=== PATIENT | male | born 1950 | race Caucasian/White ===

== ENCOUNTER 2020-09-10 02:59 | Inpatient (IN) | payer MEDICARE, OTHER ==
[2020-09-10] MEDS ORDERED: Ondansetron PF 4 MG/2 ML Vial ONE ×2 (03:15→15:48)
[2020-09-10] MEDS ORDERED: Morphine 2 MG/ML VIAL SLOW IVP PRN (04:07)
--- NOTE | 2020-09-10 04:17 | PDOC.HHP ---
Hospitalist HPI - History of Present Illness Right flank pain History of Present Illness: This is a 70-year-old male patient with a history of prediabetes and CKD who presents as a transfer from [facility] on account of right nephrolithiasis. Patient notes that he was generally well and had worked for most of the day however started having left flank pain which is very severe and radiates into his groin. He had associated nausea and vomiting. This led him to see the ED at [facility] where he was noted on CT CT stone protocol to have right nephrolithiasis of 12 mm. Pain relief was managed with morphine. Also received Levaquin and ceftriaxone and Solu-Medrol 125 mg IV. He was then transferred here so he could see a urologist. At time of my evaluation patient was almost pain-free. He denied any ongoing nausea or vomiting. Denied any dysuria frequency. Also denied any chest pain or shortness of breath. His labs as [facility] shows a mild leukocytosis of 13.7, creatinine of 2.61 from 2.48 on 07/27/2020. Urinalysis showed proteinuria however no indication of UTI. Hospitalist ROS - Review of Systems Constitutional: denies: fever, chills, sweats Respiratory: denies: cough, shortness of breath, hemoptysis Gastrointestinal: reports: nausea, vomiting, abdominal pain Genitourinary: reports: hematuria. denies: dysuria, frequency, incontinence Neurological: denies: weakness, numbness, incoordination, change in speech All other systems reviewed; all pertinent +/- noted in HPI/Subj - Medication Medications: Medications: Currently refer to ambulatory list. Allergies: Penicillin Hospitalist History - Past Medical History Other Medical History: Prediabetes - Past Surgical History Past Surgical History: reports: no pertinent history - Family History Family History: reports: diabetes mellitus - Social History Smoking Status: Current every day smoker Alcohol: reports: Occassional Drugs: reports: none Living Situation: Alone - Exam General Appearance: awake alert General - other findings: No acute distress. Eye: PERRL, anicteric sclera Heart: RRR, no murmur, no gallops, no rubs Respiratory: CTAB, no wheezes, no rales, no ronchi Gastrointestinal: soft, non-distended, normal bowel sounds, no palpable masses, tender to palpation (Mild right flank tenderness.) Extremities: no cyanosis, no clubbing, no edema Neurological: cranial nerve grossly intact, no weakness, no focal deficits Psychiatric: normal affect, normal behavior, A&O x 3 Hospitalist H&P A/P - Plan Plan: This is a 70-year-old male patient with a history of prediabetes and CKD presenting with right flank pain secondary to nephrolithiasis [facility] Nephrolithiasis IV fluid rehydrate Pain relief as needed Nephrology consult in a.m. -Right hydronephrosis as above CKD Creatinine above 2 Give IV fluids Consult nephrology if worsens. -Obesity VT prophylaxisLovenox CODE STATUSfull code
[2020-09-10] MEDS: Sodium Chloride 0.9% 1,000 ML IV SCH ×3 (06:13→17:44)
[2020-09-10] MEDS ORDERED: Dextrose 5% in Water 1,000 ML IV PRN (07:22)
[2020-09-10] MEDS ORDERED: HumaLOG 300 UNITS/3 ML VIAL SC PRN ×2 (07:22)
[2020-09-10] MEDS ORDERED: Dextrose 50% Abboject 50 ML SYRINGE SLOW IVP PRN (07:22)
[2020-09-10 08:11] VITALS: BMI 41.5
[2020-09-10] MEDS: Enoxaparin Sodium 40 MG/0.4 ML SYRINGE SC SCH (10:43)
[2020-09-10] MEDS ORDERED: Ondansetron ODT 4 MG TAB PO PRN (10:58)
[2020-09-10] MEDS ORDERED: Ondansetron PF 4 MG/2 ML Vial IVP PRN (10:58)
[2020-09-10] MEDS ORDERED: Non-Formulary Item 1 EACH (Albuterol Sulfate [Ventolin Hfa] 8 GM Hfa.Aer.Ad) INH PRN (12:43)
[2020-09-10] MEDS ORDERED: Albuterol 200 PUFF (6.7GM INHALER) INH PRN (13:12)
[2020-09-10 13:48] LABS: SARS-CoV-2 NAA Rapid Test Not Detected (NotDetected)
[2020-09-10] MEDS ORDERED: Fentanyl 100 MCG/2 ML VIAL ONE (15:32)
[2020-09-10] MEDS ORDERED: Midazolam HCl 2 mg/2 ml Vial ONE (15:32)
[2020-09-10] MEDS ORDERED: Iothalamate Meglumine 60% 50 ML VIAL FS ONE (15:37)
[2020-09-10] MEDS ORDERED: Lidocaine 1% PF 5 ML VIAL ONE (15:48)
[2020-09-10] MEDS ORDERED: PROPOFOL 200 MG/20 ML VIAL ONE (15:48)
[2020-09-10] MEDS ORDERED: ePHEDrine 50 MG/ML VIAL ONE (15:48)
[2020-09-10] MEDS ORDERED: Dexamethasone 20 MG/5 ML VIAL ONE (15:48)
[2020-09-10] MEDS ORDERED: B & O ONE (16:22)
[2020-09-10] MEDS ORDERED: Promethazine HCl 25 MG/ML VIAL SLOW IVP PRN (16:26)
[2020-09-10] MEDS ORDERED: Promethazine HCl 25 MG/ML VIAL IM PRN (16:26)
[2020-09-10] MEDS ORDERED: Ondansetron HCl/PF 4 MG/2 ML Vial IVP PRN (16:26)
--- NOTE | 2020-09-10 16:57 | RAD ---
EXAM: Retrograde IVP HISTORY: Kidney stones COMPARISON: None FINDINGS/IMPRESSION: Limited intraoperative fluoroscopic views of the retrograde IVP were submitted f or interpretation. There is no evidence of hydronephrosis. Calcifications are seen projecting over the right kidney. A wire and a pigtail catheter are eventually placed adjacent to the calcifications in the right renal collecting system.
--- NOTE | 2020-09-10 19:16 | CON ---
DATE OF CONSULTATION: 09/10/2020 REASON FOR CONSULTATION: Right renal stone. HISTORY OF PRESENT ILLNESS: Mr. Velasquez is a 70-year-old gentleman who lives in [place] and was seen in the [place] [facility]. He presented with acute onset of severe flank pain. He was evaluated in the emergency room and noted to have a large right ureteral stone. The stone was at the UPJ and over 1 cm in size. He was admitted for pain control. Urologic consultation was requested. The patient denies any voiding symptoms. Denies any prior history of stone disease. Denies any fever. PAST MEDICAL HISTORY: Chronic renal insufficiency. PAST SURGICAL HISTORY: Right knee surgery. MEDICATIONS: Please see chart. ALLERGIES: PENICILLIN. SOCIAL HISTORY: He is a nonsmoker. Denies alcohol use. He is , lives in [place]. REVIEW OF SYSTEMS: RESPIRATORY: No shortness of breath. CARDIOVASCULAR: No chest pain or palpitations. GASTROINTESTINAL: Denies chronic constipation or diarrhea. GENITOURINARY: Please see history of present illness. PHYSICAL EXAMINATION: GENERAL: He is awake, alert. He is in no distress at this time. VITAL SIGNS: Temperature 98.4, blood pressure 129/93, pulse 73, respiratory rate 20. HEENT: Normocephalic, atraumatic. NECK: Supple without masses. CHEST: Clear to auscultation. CARDIOVASCULAR: No murmurs. ABDOMEN: Soft, nontender. No palpable masses. Liver and spleen are not palpable. No peritoneal signs. EXTREMITIES: No edema. DIAGNOSTIC STUDIES: CT scan demonstrates large right upper ureteral stone. LABORATORY DATA: Chemistry; creatinine 2.61, potassium 3.9. Urinalysis demonstrates 2+ mucus, rare bacteria, moderate blood. IMPRESSION: Mr. Velasquez is a 70-year-old gentleman with a very large stone unlikely to pass with right-sided flank pain. There is no evidence of sepsis or infection at this time. Because of the size of the stone, it is highly unlikely he will pass this stone and is likely to suffer from persistent pain without narcotic pain medications. We recommend a right ureteral stent placement for recovery of the kidney function and then he will need to return for a definitive management of the right-sided stone. I have recommended a cystoscopy, right ureteral stent placement. The procedure, potential limitations, alternatives, and complications have been discussed with him. He expressed understanding and does wish to proceed. Plan cystoscopy, right ureteral stent placement. Job ID: [id number]
[2020-09-10 20:26] LABS: SARS-CoV-2 PCR by NAA Not Detected (NotDetected)
[2020-09-10] MEDS: Mometasone 100 MCG/Formoterol 5 MCG 120 PUFF INHALER INH SCH (21:03)
--- NOTE | 2020-09-10 23:11 | OP ---
DATE OF PROCEDURE: 09/10/2020 PREOPERATIVE DIAGNOSIS: Right ureteropelvic junction stone. POSTOPERATIVE DIAGNOSIS: Right ureteropelvic junction stone. PROCEDURE: Cystoscopy, right ureteral stent placement. ANESTHESIA: General. INDICATIONS: Mr. Velasquez is a 70-year-old gentleman, who developed acute onset of right-sided flank pain. He was seen in [facility] and diagnosed with a 1.2 cm right UPJ stone. He was transferred to [facility]. There was no evidence of infection, but his creatinine was elevated. Baseline creatinine not known. He is brought to the operating room for right ureteral stent placement. DETAILS OF PROCEDURE: The patient given general anesthesia and IV antibiotics. He is sterilely prepped and draped in lithotomy position. Cystoscope was passed in the bladder. Right ureteral orifice was intubated with a floppy tip guidewire, which was passed cephalad under fluoroscopic control. A 6 x 26 double-J stent was then passed over the guidewire and coiled in the right renal pelvis and in the bladder as determined fluoroscopically and cystoscopically. The cystoscope was used to drain the bladder. The cystoscope was removed. The patient tolerated the procedure well, was transported from the operating room to recovery room in stable condition. COMPLICATIONS: None. ESTIMATED BLOOD LOSS: Less than 5 mL. PLAN: Stone easily visible on [facility]. He is a treatment candidate for ESWL or ureteroscopy with laser lithotripsy. This will be arranged as an outpatient in approximately two weeks. Job ID: [id number]
[2020-09-11] MEDS: Sodium Chloride 0.9% 1,000 ML IV SCH ×2 (05:02→11:51)
[2020-09-11 06:42] LABS: #Lymphocytes 0.8 thou/uL (1.20-3.40); #Monocytes 0.8 thou/uL (0.11-0.59); #Neutrophils 15.7 thou/uL (1.40-6.50); %Eosinophils 0.1 % (0.0-10.0); %Lymphocytes 4.5 % (21.0-51.0); %Monocytes 4.4 % (0.0-10.0); Hemoglobin 12.6 g/dL (14.0-18.0); Mean Corpuscular HGB CONC 32.2 g/dL (32.0-36.0); Mean Corpuscular Hemoglobin 31.3 pg (27.0-31.0); Mean Corpuscular Volume 97.1 fL (78.0-98.0); Mean Platelet Volume 7.8 fL (7.4-10.4); Platelet Count 237 thou/uL (130-400); RBC Distribution Width 12.5 % (11.5-14.5); Red Blood Cell (RBC) Count 4.04 mill/uL (4.70-6.10); White Blood Cell (WBC) Count 17.2 thou/uL (4.8-10.8)
[2020-09-11] MEDS: Mometasone 100 MCG/Formoterol 5 MCG 120 PUFF INHALER INH SCH ×2 (06:50→19:30)
[2020-09-11 07:02] LABS: Anion Gap 14 mmol/L (10-20); BUN (Urea Nitrogen) 43 mg/dL (8.4-25.7); Calc. Creatinine Clearance 41 mL/min (70-130); Calcium 8.4 mg/dL (7.8-10.44); Carbon Dioxide 23 mmol/L (23-31); Chloride 104 mmol/L (98-107); Glucose 142 mg/dL (80-115); Potassium 4.4 mmol/L (3.5-5.1); Sodium 137 mmol/L (136-145)
[2020-09-11] MEDS: Amlodipine 5 MG TAB PO SCH (07:58)
[2020-09-11] MEDS: Enoxaparin Sodium 40 MG/0.4 ML SYRINGE SC SCH (07:59)
[2020-09-11] MEDS ORDERED: FLU VACC QS2020-21(65YR UP)/PF 240 MCG/0.7 ML SYRINGE IM ONE (08:15)
[2020-09-11] MEDS ORDERED: Non-Formulary Item 1 EACH (Fluticasone/Umeclidin/Vilanter [Trelegy Ellipta 100-62.5-25] 1 IN SCH (09:00)
--- NOTE | 2020-09-11 14:03 | PDOC.HOSPP ---
- Subjective Encounter Date: 09/11/20 Encounter Time: 10:45 Subjective: has urinary incontinence after procedure per patient no liliane hematuria no sob or abd pain or nausea is tolerating oral diet - Objective Vital Signs & Weight: Vital Signs (12 hours) Temp Pulse Resp BP Pulse Ox 09/11/20 13:10 64 16 09/11/20 12:38 98.3 F 70 20 116/59 L 93 L 09/11/20 07:55 97.9 F 67 18 125/60 93 L 09/11/20 06:45 64 12 09/11/20 04:00 98.1 F 58 L 12 124/60 Weight Weight 281 lb I&O: 09/10/20 09/11/20 09/12/20 06:59 06:59 06:59 Intake Total 240 Output Total 260 Balance -20 Result Diagrams: 09/11/20 05:16 09/11/20 05:16 Additional Labs: Accuchecks 09/11/20 09/11/20 09/10/20 11:40 06:17 21:15 POC Glucose 137 H 124 H 188 H 09/10/20 17:43 POC Glucose 99 Hospitalist ROS - Medication Medications: Active Medications Generic Name Dose Route Start Last Admin Trade Name Freq PRN Reason Stop Dose Admin Albuterol/Ipratropium 3 ml 09/10/20 19:00 09/11/20 13:10 Ipratropium/Albuterol Sulfate 3 Ml Neb NEB 3 ml [id number] [id number] Administration Amlodipine Besylate 5 mg 09/11/20 09:00 09/11/20 07:58 Amlodipine 5 Mg Tab PO 5 mg DAILY TIN Administration Enoxaparin Sodium 40 mg 09/10/20 09:00 09/11/20 07:59 Enoxaparin Sodium 40 Mg/0.4 Ml Syringe SC 40 mg 0900 TIN Administration Sodium Chloride 1,000 mls @ 100 mls/hr 09/10/20 04:45 09/11/20 11:51 Normal Saline 0.9% IV Not Given .Q10H TIN Mometasone Furoate/Formoterol Fumar 2 puff 09/10/20 18:30 09/11/20 06:50 Mometasone 100 Mcg/Formoterol 5 Mcg 120 Puff Inhaler INH 2 puff BID-RT TIN Administration Ondansetron HCl 4 mg 09/10/20 10:58 09/10/20 11:13 Ondansetron Odt 4 Mg Tab PO 4 mg Q6H PRN Administration Nausea/Vomiting Sodium Chloride 10 ml 09/10/20 09:00 09/11/20 11:50 Flush - Normal Saline 10 Ml Syringe IVF Not Given Q12HR TIN - Exam General Appearance: awake alert Eye: PERRL, anicteric sclera ENT: no oropharyngeal lesions, dry oral mucosa Neck: supple, no JVD Heart: RRR, no murmur Respiratory: no wheezes, no rales Gastrointestinal: soft, non-tender, non-distended, normal bowel sounds Extremities: no cyanosis, no edema Neurological: cranial nerve grossly intact, no focal deficits Psychiatric: normal affect, A&O x 3 Hosp A/P (1) Right ureteral calculus Code(s): N20.1 - CALCULUS OF URETER Status: Acute (2) UTI (urinary tract infection) Status: Suspected Qualifiers: Urinary tract infection type: acute cystitis Hematuria presence: without hematuria Qualified Code(s): N30.00 - Acute cystitis without hematuria (3) Acute kidney injury superimposed on CKD Code(s): N17.9 - ACUTE KIDNEY FAILURE, UNSPECIFIED; N18.9 - CHRONIC KIDNEY DISEASE, UNSPECIFIED Status: Acute (4) DM type 2 (diabetes mellitus, type 2) Status: Chronic Qualifiers: Diabetes mellitus termination clerk insulin use: without alf use Diabetes mellitus complication status: with hyperglycemia Qualified Code(s): E11.65 - Type 2 diabetes mellitus with hyperglycemia (5) HTN (hypertension) Code(s): I10 - ESSENTIAL (PRIMARY) HYPERTENSION Status: Chronic Qualifiers: Hypertension type: essential hypertension Qualified Code(s): I10 - Essential (primary) hypertension (6) Obesity Code(s): E66.9 - OBESITY, UNSPECIFIED Status: Chronic Qualifiers: Obesity classification: adult class 3 (BMI >= 40) Body mass index: BMI 40.0-44.9 - Plan urine culture, start ceftriaxone, wbc around 17k, creatinine around 3 with h/o ckd (baseline around 2.5) gentle iv fluids, encourage po fluid and oral solid diet to ambulate as tolerated continue norvascbrandon duoneb HbA1c around 5.7, prediabetic, will need diabetic education and strict diet will have lithotripsy in 2 weeks, is s/p stent to right ureter 09/[address]Hathorn orona
[2020-09-11] MEDS ORDERED: cefTRIAXone\\ROCEPHIN 1 GM in Sodium Chloride 0.9% 100 ML IVPB SCH (15:00)
[2020-09-12] MEDS: Sodium Chloride 0.9% 1,000 ML IV SCH ×2 (00:33→06:59)
[2020-09-12] MEDS: Mometasone 100 MCG/Formoterol 5 MCG 120 PUFF INHALER INH SCH (06:20)
[2020-09-12 07:14] LABS: #Basophils 0.1 thou/uL (0.0-0.2); #Eosinphils 0.1 thou/uL (0.0-0.7); #Lymphocytes 1.9 thou/uL (1.20-3.40); #Monocytes 0.8 thou/uL (0.11-0.59); #Neutrophils 9.3 thou/uL (1.40-6.50); %Basophils 0.4 % (0.0-1.0); %Eosinophils 0.5 % (0.0-10.0); %Lymphocytes 15.7 % (21.0-51.0); %Monocytes 6.6 % (0.0-10.0); %Neutrophils 76.7 % (42.0-75.0); Hemoglobin 12.3 g/dL (14.0-18.0); Mean Corpuscular HGB CONC 31.7 g/dL (32.0-36.0); Mean Corpuscular Hemoglobin 30.8 pg (27.0-31.0); Mean Corpuscular Volume 97.3 fL (78.0-98.0); Mean Platelet Volume 7.5 fL (7.4-10.4); Platelet Count 245 thou/uL (130-400); RBC Distribution Width 12.8 % (11.5-14.5); White Blood Cell (WBC) Count 12.1 thou/uL (4.8-10.8)
[2020-09-12 07:45] LABS: Albumin 3.1 g/dL (3.4-4.8); Anion Gap 16 mmol/L (10-20); BUN (Urea Nitrogen) 45 mg/dL (8.4-25.7); BUN/Creatinine Ratio 15.68; Calc. Creatinine Clearance 44 mL/min (70-130); Calcium 8.2 mg/dL (7.8-10.44); Carbon Dioxide 17 mmol/L (23-31); Chloride 108 mmol/L (98-107); Glucose 96 mg/dL (80-115); Phosphorus 4.2 mg/dL (2.3-4.7); Potassium 4.3 mmol/L (3.5-5.1); Sodium 137 mmol/L (136-145)
[2020-09-12] MEDS: Amlodipine 5 MG TAB PO SCH (07:58)
[2020-09-12] MEDS: Enoxaparin Sodium 40 MG/0.4 ML SYRINGE SC SCH (07:59)
[2020-09-12 08:06] VITALS: BP 165/74; TEMP 98.1
--- NOTE | 2020-09-12 08:31 | CON ---
DATE OF CONSULTATION: 09/11/2020 CONSULTING PHYSICIAN: Dr. Ronak Boles. REASON FOR CONSULTATION: Acute kidney injury. REASON FOR ADMISSION: Nephrolithiasis. HISTORY OF PRESENT ILLNESS: A 70-year-old male with history of type 3 diabetes, came to the hospital with flank pain, was found to have nephrolithiasis and being treated. Nephrology is consulted for acute kidney injury associated with nephrolithiasis. The patient is feeling better. No nausea or vomiting. No chest pain or palpitation. PAST MEDICAL HISTORY: Prediabetes. PAST SURGICAL HISTORY: None. HOME MEDICATIONS: Reviewed. ALLERGIES: PENICILLIN. SOCIAL HISTORY: Everyday smoker and occasional alcohol use. FAMILY HISTORY: Positive for diabetes. REVIEW OF SYSTEMS: CONSTITUTIONAL: Negative for weight loss or gain, ability to conduct usual activities. SKIN: Negative for rash, itching. EYES: Negative for double vision, pain. ENT/MOUTH: Negative for nose bleeding, neck stiffness, pain, tenderness. CARDIOVASCULAR: Negative for palpitations, dyspnea on exertion, orthopnea. RESPIRATORY: Negative for shortness of breath, wheezing, cough, hemoptysis, fever or night sweats. GASTROINTESTINAL: Negative for poor appetite, abdominal pain, heartburn, nausea, vomiting, constipation, or diarrhea. GENITOURINARY: Negative for urgency, frequency, dysuria, nocturia. MUSCULOSKELETAL: Negative for pain, swelling. NEUROLOGIC/PSYCHIATRIC: Negative for anxiety, depression. ALLERGY/IMMUNOLOGIC: Negative for skin rash, bleeding tendency. PHYSICAL EXAMINATION: GENERAL: This is a well-built male, in no apparent distress. VITAL SIGNS: Temperature 98.3, pulse 63, respiratory rate 20, blood pressure 126/61. HEENT: Atraumatic, normocephalic. Oral mucosa is moist. NECK: Supple. CV: S1, S2. Rate and rhythm are regular. RESPIRATORY: Clear. GASTROINTESTINAL: Abdomen is soft. MUSCULOSKELETAL: . DERMATOLOGIC: No skin rash. NEUROLOGIC: Alert, awake. PSYCHIATRIC: Normal mood and affect. LABORATORY DATA: Hemoglobin is 12.6. Potassium 4.4, BUN is 43, creatinine is 3.1. ASSESSMENT AND PLAN: 1. Acute kidney injury secondary to nephrolithiasis. Agree with hydration. Monitor labs. 2. Nephrolithiasis. 3. History of hypertension. 4. Mild anemia. We will monitor labs. Continue hydration. Avoid nephrotoxins. We will follow. Job ID: [id number]
--- NOTE | 2020-09-13 08:00 | DIS ---
DATE OF ADMISSION: 09/11/2020 DATE OF DISCHARGE: 09/12/2020 DISCHARGE DISPOSITION: To home. PRIMARY DISCHARGE DIAGNOSES: The patient is status post right ureteral stent with cystoscopy for right ureteral calculus; acute kidney injury superimposed on chronic kidney disease, likely stage IV; urinary tract infection; diabetes mellitus type 2; hypertension; obesity. PROCEDURES DONE DURING HOSPITALIZATION: The patient has had cystoscopy with right ureteral stent placement for right ureteropelvic junction stone done by Dr. Silva on 09/10/2020. Abdominal and pelvic CAT scan done on 09/09/2020, showed approximately 12 mm right ureteropelvic junction calculus causing moderate right-sided hydronephrosis. Gallstones were incidentally seen. Urine culture, no growth. Blood cultures x2, no growth. He had a white count of 17 on the , discharge white count of 12, H and H of 12 and 38, platelet count 245, MCV is 97. Discharge BUN and creatinine are 45 and 2.87. Albumin 3.1. BNP 18. COVID-19 PCR was not detected on 09/10/2020. DISCHARGE MEDICATIONS: 1. Ciprofloxacin 250 mg p.o. twice daily for 7 days. 2. Lisinopril 5 mg p.o. daily. 3. Lopressor 25 mg twice daily. 4. Norvasc 10 mg daily. 5. Albuterol inhaler q.6 hourly p.r.n. 6. Trelegy Ellipta inhaler daily. ALLERGIES: PENICILLIN. DISCHARGE PLAN: The patient to follow up with Dr. Silva for laser lithotripsy in 10 days. He needs to follow up with his primary care physician, Dr. Gilbert in 1 week; Dr. Rodriguez, counter server in 2 weeks with likely labs. BRIEF COURSE DURING HOSPITALIZATION: The patient initially got admitted on the with complaints of right flank pain. Initial CAT scan showed 12 mm right ureteropelvic junction stone with moderate hydronephrosis. He also had leukocytosis and had creatinine going up to 3. The patient was generously hydrated and was placed on broad-spectrum antibiotics. He has had consultation with Dr. Silva. He has had cystoscopy with placement of stent to the right ureter. The plan is to have laser lithotripsy in about 2 weeks when he follows up with Dr. Silva in the outpatient setting. His creatinine is trending down with fluid hydration with discharge creatinine of around 2.87. His urine culture did not grow any organism. The patient had elevated white count and was given IV antibiotics and has been transitioned to ciprofloxacin renal dose for a total duration of one week. He likely will need close followup of his renal function labs and appointment with Dr. Rodriguez in the outpatient setting. I have counseled him regarding above. He is ambulating and eating well prior to discharge. Job ID: [id number]
== END 2020-09-12 10:45 | disposition home or self-care (01) | DRG 660 ==
LOC: ERS 02:59 → 3SE 03:41 → OBSVTOIN 09-11 17:56
PROVIDERS: ADMIT Student in an Organized Health Care Education/Training Program; ATTEND Internal Medicine
PROC: 0T768DZ Dilation of Right Ureter with Intraluminal Device, Via Natural or Artificial Opening Endoscopic (ICD-10-PCS; principal; 2020-09-10)
PROC: BT1DZZZ Fluoroscopy of Right Kidney, Ureter and Bladder (ICD-10-PCS; 2020-09-10)
DX: N13.6 Pyonephrosis (principal); Z68.41 Body mass index [BMI] 40.0-44.9, adult; Z23 Encounter for immunization; Z20.822 Contact with and (suspected) exposure to COVID-19; N17.9 Acute kidney failure, unspecified; N18.4 Chronic kidney disease, stage 4 (severe); E11.22 Type 2 diabetes mellitus with diabetic chronic kidney disease; D63.1 Anemia in chronic kidney disease; I12.9 Hypertensive chronic kidney disease with stage 1 through stage 4 chronic kidney disease, or unspecified chronic kidney disease; E66.9 Obesity, unspecified; F17.210 Nicotine dependence, cigarettes, uncomplicated; Z88.0 Allergy status to penicillin; Z83.3 Family history of diabetes mellitus; Z79.899 Other long term (current) drug therapy
CPT/HCPCS: 36415; 36416; 74420; 80048; 80069; 85025; 87086; 87635; 94640; 94664; 96365; 96372; 96374; 96375; G0378; J0696; J1100; J1650; J2250; J2405; J2704; J3010; J3490; J7620; Q0162; U0002; U0003; U0005

== ENCOUNTER 2022-08-22 15:27 | Emergency (ER) | payer OTHER ==
[2022-08-22 16:42] LABS: #Eosinphils 0.2 thou/uL (0.0-0.7); #Lymphocytes 1.7 thou/uL (1.20-3.40); #Monocytes 0.6 thou/uL (0.11-0.59); #Neutrophils 6.5 thou/uL (1.40-6.50); %Basophils 0.5 % (0.0-1.0); %Eosinophils 2.5 % (0.0-10.0); %Lymphocytes 18.6 % (21.0-51.0); %Monocytes 6.9 % (0.0-10.0); %Neutrophils 71.6 % (42.0-75.0); Hemoglobin 15.5 g/dL (14.0-18.0); Mean Corpuscular HGB CONC 32.1 g/dL (32.0-36.0); Mean Corpuscular Hemoglobin 32.3 pg (27.0-31.0); Mean Platelet Volume 7.6 fL (7.4-10.4); Platelet Count 247 10x3/uL (130-400); RBC Distribution Width 12.7 % (11.5-14.5); Red Blood Cell (RBC) Count 4.79 mill/uL (4.70-6.10); White Blood Cell (WBC) Count 9.1 10x3/uL (4.8-10.8)
[2022-08-22 17:02] LABS: ALT (SGPT) 20 U/L (8-55); AST (SGOT) 22 U/L (5-34); Alkaline Phosphatase 85 U/L (40-110); Anion Gap 14 mmol/L (10-20); BUN (Urea Nitrogen) 36 mg/dL (8.4-25.7); Bilirubin, Total 0.6 mg/dL (0.2-1.2); Calc. Creatinine Clearance 0 mL/min (70-130); Calcium 10.3 mg/dL (7.8-10.44); Carbon Dioxide 31 mmol/L (23-31); Chloride 102 mmol/L (98-107); Estimated GFR 24; Globulin 3.3 g/dL (2.4-3.5); Glucose 107 mg/dL (83-110); Potassium 4.1 mmol/L (3.5-5.1); Protein, Total 7.3 g/dL (5.8-8.1); Sodium 143 mmol/L (136-145)
[2022-08-22 19:46] LABS: Troponin I Less than 0.010 ng/mL (< 0.028)
[2022-08-22] MEDS ORDERED: HYDROcodone/Acetaminophen 5/325 mg Tablet ONE (20:12)
== END 2022-08-22 20:35 | disposition home or self-care (01) ==
LOC: ERS 15:27
DX: R60.0 Localized edema (principal); I12.9 Hypertensive chronic kidney disease with stage 1 through stage 4 chronic kidney disease, or unspecified chronic kidney disease; E11.22 Type 2 diabetes mellitus with diabetic chronic kidney disease; N18.4 Chronic kidney disease, stage 4 (severe); F17.210 Nicotine dependence, cigarettes, uncomplicated
CPT/HCPCS: 36415; 71045; 80053; 83880; 84484; 85025; 93005